=== PATIENT | male | born 1970 | race Hispanic/Latino ===

== ENCOUNTER 2018-04-04 02:47 | Emergency (ER) | payer SELFPAY ==
[2018-04-04] MEDS ORDERED: CEFAZOLIN 1 GM VIAL ONE ×2 (03:01→03:02)
[2018-04-04] MEDS ORDERED: Fentanyl 100 MCG/2 ML VIAL ONE (03:01)
[2018-04-04] MEDS ORDERED: Adacel (T-DAP) 0.5 ML VIAL ONE (03:01)
[2018-04-04 03:30] LABS: PTT 26.7 SEC (22.9-36.1); Prothrombin Time 13.3 SEC (12.0-14.7)
[2018-04-04 03:35] LABS: #Basophils 0.1 thou/uL (0.0-0.2); #Eosinphils 0.1 thou/uL (0.0-0.7); #Lymphocytes 2.9 thou/uL (1.20-3.40); #Monocytes 0.5 thou/uL (0.11-0.59); #Neutrophils 3.7 thou/uL (1.40-6.50); %Basophils 1.9 % (0.0-1.0); %Eosinophils 1.6 % (0.0-10.0); %Lymphocytes 39.5 % (21.0-51.0); %Monocytes 6.5 % (0.0-10.0); %Neutrophils 50.6 % (42.0-75.0); Hemoglobin 13.8 g/dL (14.0-18.0); Mean Corpuscular HGB CONC 34.3 g/dL (32.0-36.0); Mean Corpuscular Hemoglobin 30.2 pg (27.0-31.0); Mean Corpuscular Volume 87.9 fL (78.0-98.0); Mean Platelet Volume 9.3 fL (7.4-10.4); Platelet Count 180 thou/uL (130-400); RBC Distribution Width 11.7 % (11.5-14.5); Red Blood Cell (RBC) Count 4.58 mill/uL (4.70-6.10); White Blood Cell (WBC) Count 7.4 thou/uL (4.8-10.8)
[2018-04-04 03:40] LABS: Anion Gap 18 mmol/L (10-20); BUN (Urea Nitrogen) 19 mg/dL (8.9-20.6); Calc. Creatinine Clearance 0 mL/min (70-130); Calcium 8.6 mg/dL (7.8-10.44); Carbon Dioxide 20 mmol/L (22-29); Chloride 109 mmol/L (98-107); Estimated GFR-MDRD 86; Glucose 118 mg/dL (70-105); Potassium 4.1 mmol/L (3.5-5.1); Sodium 143 mmol/L (136-145)
[2018-04-04] MEDS ORDERED: Sodium Chloride Irrig Solution 250 ML BOT ONE (09:00)
--- NOTE | 2018-04-04 09:38 | RAD ---
RADIOGRAPH LEFT HAND 3 VIEWS: Date: 04/04/18 Time: 0321 hours HISTORY: 47-year-old male status post acute traumatic injury to the left hand. COMPARISON: None. FINDINGS: There is absence of all bone and soft tissue distal to the distal shaft of the fifth middle phalanx. There is a comminuted fracture at the proximal metaphysis of the fourth middle phalanx, with almost o ne full shaft width volar, and approximately half shaft width radial, displacement, of major distal f ragments, which are also significantly rotated. Longitudinally oriented fracture of shaft of fourth m iddle phalanx with moderate displacement. Complex shaped fracture at proximal metaphysis of third middle phalanx, with mild displacement, and c omponent that reaches the ulnar side of the third PIP joint surface with minimal displacement there. IMPRESSION: 1. Severe fractures of the digits, includin. 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 3. Acute, traumatic, comminuted, significantly displaced open traumatic fracture of fourth middle ph alanx. 4. Acute, traumatic, mildly displaced fracture of base of third middle phalanx, with intraarticular involvement. POS: [facility]
== END 2018-04-04 04:03 | disposition short-term general hospital (02) ==
LOC: MADERS 02:47
DX: S68.125A Partial traumatic metacarpophalangeal amputation of left ring finger, initial encounter (principal); S68.127A Partial traumatic metacarpophalangeal amputation of left little finger, initial encounter; S67.195A Crushing injury of left ring finger, initial encounter; S67.197A Crushing injury of left little finger, initial encounter; S61.211A Laceration without foreign body of left index finger without damage to nail, initial encounter; S61.213A Laceration without foreign body of left middle finger without damage to nail, initial encounter; W31.89XA Contact with other specified machinery, initial encounter
CPT/HCPCS: 36415; 64450; 80048; 85025; 85610; 85730; 90471; 90715; 96365; 96375; J0690; J2001; J3010; J7050